=== PATIENT | male | born 1955 | race Caucasian/White ===

== ENCOUNTER 2019-05-19 14:33 | Emergency (ER) | payer MEDICARE ==
--- NOTE | 2019-05-19 15:07 | ERPHSYRPT ---
- History of Present Illness Time Seen by Provider: 05/19/19 14:55 Source: patient Exam Limitations: no limitations Physician History: 64 y/o white male presents from physical therapy clinic. pts bp elevated so pt was transferred to us for eval/management. pt is asymptomatic. 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 his bp on arrival 177/89. pt does have right shoulder pain(chronic post op ) after his surgery in mar 2019. he denies cp, soa and abd pain. pt takes lisinopril and carvedilol for htn Timing/Duration: today Severity: mild Associated Symptoms: denies symptoms, No nausea, No vomiting, No abdominal pain , No shortness of breath, No chest pain Allergies/Adverse Reactions: No Known Drug Allergies Allergy (Verified 05/19/19 15:39) Home Medications: Doxycycline Hyclate 100 mg [Vibramycin 100 MG] 100 mg PO DAILY 05/19/19 [ History] Tizanidine HCl 2 mg PO DAILY 05/19/19 [History] Triamcinolone Acetonide 0.1% [Kenalog 0.1% Ointment] 1 each TOP DAILY 05/19 [History] Hx Tetanus, Diphtheria Vaccination/Date Given: No Hx Influenza Vaccination/Date Given: No Hx Pneumococcal Vaccination/Date Given: No - Review of Systems Constitutional: No Symptoms Eyes: No Symptoms Ears, Nose, & Throat: No Symptoms Respiratory: No Symptoms Cardiac: No Symptoms Abdominal/Gastrointestinal: No Symptoms Genitourinary Symptoms: No Symptoms Musculoskeletal: Joint Pain (chronic right shoulder pain) Neurological: No Symptoms Psychological: No Symptoms Endocrine: No Symptoms Hematologic/Lymphatic: No Symptoms Immunological/Allergic: No Symptoms All Other Systems: Reviewed and Negative - Past Medical History Pertinent Past Medical History: Yes Neurological History: TIA ENT History: No Pertinent History Cardiac History: High Cholesterol, Hypertension Respiratory History: No Pertinent History Endocrine Medical History: Diabetes Type II Musculoskeletal History: Arthritis, Osteoarthritis GI Medical History: Diverticulitis, GERD, Other History: No Pertinent History Psycho-Social History: No Pertinent History, Depression Male Reproductive Disorders: No Pertinent History Other Medical History: Patient reports history as: partial colon removal, R knee surgery (ACL and MCL repair), PTSD, ADHD - Past Surgical History Past Surgical History: Yes Neuro Surgical History: No Pertinent History Cardiac: No Pertinent History Respiratory: No Pertinent History Gastrointestinal: Other Genitourinary: No Pertinent History Musculoskeletal: No Pertinent History Male Surgical History: No Pertinent History Other Surgical History: COLONOSCOPY-REMOVED A POLYP. RIGHT KNEE SURGERY- LIGAMENT RUPTURES. FINGER SURGERY - Social History Smoking Status: Never smoker Exposure to second hand smoke: No Drug Use: none Patient Lives Alone: No - Nursing Vital Signs Nursing Vital Signs: Initial Vital Signs Temperature 98 F 05/19/19 14:43 Pulse Rate 72 05/19/19 14:43 Respiratory Rate 20 05/19/19 14:43 Blood Pressure 177/89 05/19/19 14:43 O2 Sat by Pulse Oximetry 96 05/19/19 14:43 Pain Scale Pain Intensity 6 - Physical Exam General Appearance: no apparent distress, alert, anxiety Eye Exam: PERRL/EOMI, eyes nml inspection Ears, Nose, Throat Exam: normal ENT inspection, moist mucous membranes Neck Exam: normal inspection, non-tender, supple, full range of motion Respiratory Exam: normal breath sounds, lungs clear, airway intact, No chest tenderness, No respiratory distress Cardiovascular Exam: regular rate/rhythm, normal heart sounds, normal peripheral pulses Gastrointestinal/Abdomen Exam: soft, normal bowel sounds, No tenderness Rectal Exam: not done Back Exam: normal inspection, normal range of motion, No CVA tenderness, No vertebral tenderness Extremity Exam: normal inspection, normal range of motion, pelvis stable Neurologic Exam: alert, oriented x 3, cooperative, community support specialist II-XII nml as tested Skin Exam: normal color, warm, dry Lymphatic Exam: No adenopathy SpO2 Interpretation: normal O2 Delivery: Room Air - Course Nursing assessment & vital signs reviewed: Yes Ordered Tests: Active Orders 24 hr Category Date Time Status 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 2.5 Mg IV 05/19/19 15:08 0.625 mg STAT ONE Administration Enalaprilat Confirm 05/19/19 15:36 Vasotec I.V. 2.5 Mg Administered 05/19/19 15:37 Dose 2.5 mg IV .STK-MED ONE Lab/Rad Data: Laboratory Result Diagrams 05/19/19 15:30 05/19/19 15:30 Laboratory Results 05/19/19 05/19/19 Range/Units 15:30 15:30 WBC 8.7 (4.0-10.5) K/mm3 RBC 4.96 (4.1-5.6) M/mm3 Hgb 14.7 (12.5-18.0) gm/dl Hct 42.7 (42-50) % MCV 86.1 (78-100) fl MCH 29.6 (26-32) pg MCHC 34.4 (32-36) g/dl RDW 12.5 (11.5-14.0) % Plt Count 254 (150-450) K/mm3 MPV 10.4 H (6-9.5) fl Gran % 69.6 H (36.0-66.0) % Eos # (Auto) 0.20 (0-0.5) Absolute Lymphs (auto) 1.81 (1.0-4.6) Absolute Monos (auto) 0.61 (0.0-1.3) Lymphocytes % 20.9 L (24.0-44.0) % Monocytes % 7.0 (0.0-12.0) % Eosinophils % 2.3 (0.00-5.0) % Basophils % 0.2 (0.0-0.4) % Absolute Granulocytes 6.04 (1.4-6.9) Basophils # 0.02 (0-0.4) Sodium 142 (137-145) mmol/L Potassium 4.3 (3.5-5.1) mmol/L Chloride 101 (98-107) mmol/L Carbon Dioxide 28 (22-30) mmol/L Anion Gap 16.6 H (5-15) MEQ/L BUN 16 (9-20) mg/dL Creatinine 0.56 L (0.66-1.25) mg/dL Estimated GFR > 60.0 ML/MIN Glucose 99 (74-106) mg/dL Calcium 9.8 (8.4-10.2) mg/dL - Progress Progress: improved Counseled pt/family regarding: lab results, need for follow-up - Departure Departure Disposition: Home Clinical Impression: Hypertensive urgency Condition: Stable Critical Care Time: Yes Referrals: PERRY RUSHING MD [Primary Care Provider] - Additional Instructions: take your medications as prescribed. monitor and log your blood pressure 3 times daily for 3 days then follow up with your prescribing doctor for further management
[2019-05-19 15:35] LABS: Absolute Neutrophil Ct (ANC) 6.04 (1.4-6.9); BASOPHIL % 0.2 % (0.0-0.4); Basophil (Absolute #) 0.02 (0-0.4); Eosinophil % 2.3 % (0.00-5.0); Hematocrit 42.7 % (42-50); Hemoglobin 14.7 gm/dl (12.5-18.0); Lymphocyte (Absolute #) 1.81 (1.0-4.6); Lymphocytes % 20.9 % (24.0-44.0); Mean Cell Volume 86.1 fl (78-100); Mean Corpuscular Hemoglobin 29.6 pg (26-32); Mean Corpuscular Hgb Concent. 34.4 g/dl (32-36); Mean Platelet Volume 10.4 fl (6-9.5); Monocyte (Absolute #) 0.61 (0.0-1.3); Neutrophil % 69.6 % (36.0-66.0); Platelet Count 254 K/mm3 (150-450); Red Blood Count 4.96 M/mm3 (4.1-5.6); Red Cell Distribution Width 12.5 % (11.5-14.0); White Blood Count 8.7 K/mm3 (4.0-10.5)
[2019-05-19] MEDS ORDERED: VASOTEC I.V. 2.5 MG IV ONE (15:36)
[2019-05-19] MEDS: VASOTEC I.V. 2.5 MG IV ONE (15:42)
[2019-05-19 15:45] LABS: ANION GAP 16.6 MEQ/L (5-15); BLOOD UREA NITROGEN 16 mg/dL (9-20); CHLORIDE 101 mmol/L (98-107); Calcium 9.8 mg/dL (8.4-10.2); Carbon Dioxide 28 mmol/L (22-30); Creatinine 1 0.56 mg/dL (0.66-1.25); Glucose 99 mg/dL (74-106); Potassium 4.3 mmol/L (3.5-5.1); SODIUM 142 mmol/L (137-145)
[2019-05-19 16:23] VITALS: BP 156/91; PULSE 69; O2SAT 98
== END 2019-05-19 16:22 | disposition home or self-care (01) ==
LOC: ED 14:33
DX: I16.0 Hypertensive urgency (principal); I10 Essential (primary) hypertension; E11.9 Type 2 diabetes mellitus without complications; M19.90 Unspecified osteoarthritis, unspecified site; F41.9 Anxiety disorder, unspecified
CPT/HCPCS: 36000; 36415; 80048; 85025; 93041; 94760; 96374; 99284

== ENCOUNTER 2019-09-24 07:50 | Day surgery (SDC) | payer MEDICARE ==
[2019-09-24] MEDS ORDERED: Depo-Medrol 40 MG/ML IM ONE (07:51)
[2019-09-24] MEDS ORDERED: Xylocaine-Mpf 2% 5 Ml Vial IJ ONE (07:51)
--- NOTE | 2019-09-24 10:20 | XRAY ---
14 seconds fluoroscopy time in surgery for bilateral L3-S1 MBB.
--- NOTE | 2019-09-24 10:20 | XRAY ---
Indication: Bilateral L3-S1 MBB. Intraoperative fluoroscopy was provided for 14 seconds. Single digital spot image submitted for interpretation demonstrates posterior needle tips projecting over the expected course of the left and right L3-S1 nerve roots. Correlate with intraoperative findings/report.
[2019-09-24] MEDS ORDERED: Lactated Ringers 1,000 ML IV ONE (14:50)
== END 2019-09-24 09:27 | disposition home or self-care (01) ==
LOC: SDC-PAIN 07:50
PROVIDERS: ATTEND Psychiatry & Neurology Pain Medicine
DX: M47.816 Spondylosis without myelopathy or radiculopathy, lumbar region (principal); M47.817 Spondylosis without myelopathy or radiculopathy, lumbosacral region; E11.9 Type 2 diabetes mellitus without complications; F41.8 Other specified anxiety disorders; Z86.73 Personal history of transient ischemic attack (TIA), and cerebral infarction without residual deficits; Z79.899 Other long term (current) drug therapy
CPT/HCPCS: 64493; 64494; 64495; 72020; 77002; 82962; J1030

== ENCOUNTER 2019-12-24 07:38 | Day surgery (SDC) | payer MEDICARE ==
[2019-12-24] MEDS ORDERED: Marcaine 0.5% SDV 10 ML IJ ONE (07:39)
[2019-12-24] MEDS ORDERED: Depo-Medrol 40 MG/ML IM ONE (07:39)
[2019-12-24] MEDS ORDERED: Ketamine HCl 50 MG/ML ONE (10:09)
--- NOTE | 2019-12-24 11:52 | XRAY ---
Indication: Bilateral L3-S1 MBB. Intraoperative fluoroscopy was provided for 17 seconds. Single digital spot image submitted for interpretation demonstrates posterior needle tips projecting over the expected course the left and right L3-S1 nerve roots. Correlate with intraoperative findings/report.
--- NOTE | 2019-12-24 11:57 | XRAY ---
17 seconds fluoroscopy time in surgery for bilateral L3-S1 MBB.
[2019-12-24] MEDS ORDERED: Lactated Ringers 1,000 ML IV ONE (14:31)
== END 2019-12-24 10:36 | disposition home or self-care (01) ==
LOC: SDC-PAIN 07:38
PROVIDERS: ATTEND Psychiatry & Neurology Pain Medicine
DX: M47.816 Spondylosis without myelopathy or radiculopathy, lumbar region (principal); E11.9 Type 2 diabetes mellitus without complications; Z86.79 Personal history of other diseases of the circulatory system; Z86.73 Personal history of transient ischemic attack (TIA), and cerebral infarction without residual deficits; Z79.899 Other long term (current) drug therapy
CPT/HCPCS: 64493; 64494; 64495; 72020; 77002; 82962; J1030

== ENCOUNTER 2020-01-28 09:01 | Day surgery (SDC) | payer MEDICARE ==
[2020-01-28] MEDS ORDERED: Depo-Medrol 40 MG/ML IM ONE (09:02)
[2020-01-28] MEDS ORDERED: Xylocaine 1% Vial 30 ML PF IJ ONE (09:02)
[2020-01-28] MEDS ORDERED: Marcaine 0.5% SDV 10 ML IM ONE (09:02)
[2020-01-28] MEDS ORDERED: Ketamine HCl 50 MG/ML ONE (10:29)
[2020-01-28] MEDS ORDERED: DIPRIVAN 200 MG/20 ML IV ONE (10:29)
--- NOTE | 2020-01-28 12:21 | XRAY ---
Indication: Left L3-S1 RFA. Intraoperative fluoroscopy was provided for 40 seconds. 3 digital spot images demonstrates posterior needle tips projecting over the expected course of the left L3-S1 nerve roots. Correlate with intraoperative findings/report.
--- NOTE | 2020-01-28 14:26 | XRAY ---
40 seconds of fluoroscopy was used in surgery for a left L3-L4, L4-L5, and L5-S1 RFA.
[2020-01-28] MEDS ORDERED: Lactated Ringers 1,000 ML IV ONE (14:52)
== END 2020-01-28 11:07 | disposition home or self-care (01) ==
LOC: SDC-PAIN 09:01
PROVIDERS: ATTEND Psychiatry & Neurology Pain Medicine
DX: M47.816 Spondylosis without myelopathy or radiculopathy, lumbar region (principal); E11.9 Type 2 diabetes mellitus without complications; I25.10 Atherosclerotic heart disease of native coronary artery without angina pectoris; Z86.73 Personal history of transient ischemic attack (TIA), and cerebral infarction without residual deficits; Z79.899 Other long term (current) drug therapy
CPT/HCPCS: 64633; 64635; 64636; 72100; 77002; 82962; J1030; J2001; J2704

== ENCOUNTER 2020-02-04 11:30 | Day surgery (SDC) | payer MEDICARE ==
[2020-02-04] MEDS ORDERED: Xylocaine 1% Vial 30 ML PF IJ ONE (11:31)
[2020-02-04] MEDS ORDERED: Depo-Medrol 40 MG/ML IM ONE (11:31)
[2020-02-04] MEDS ORDERED: Marcaine 0.5% SDV 10 ML IM ONE (11:31)
[2020-02-04] MEDS ORDERED: Ketamine HCl 50 MG/ML ONE (12:42)
[2020-02-04] MEDS ORDERED: DIPRIVAN 200 MG/20 ML IV ONE (12:42)
--- NOTE | 2020-02-04 14:10 | XRAY ---
30 seconds fluoroscopy time in surgery for right L3-S1 RFA.
--- NOTE | 2020-02-04 14:19 | XRAY ---
Indication: Right L3-S1 RFA. Intraoperative fluoroscopy was provided for 30 seconds. 3 digital spot images submitted for interpretation demonstrates posterior needle tips projecting over the expected course of the right L3-S1 nerve roots. Correlate with intraoperative findings/report.
[2020-02-04] MEDS ORDERED: Lactated Ringers 1,000 ML IV ONE (14:54)
== END 2020-02-04 13:20 | disposition home or self-care (01) ==
LOC: SDC-PAIN 11:30
PROVIDERS: ATTEND Psychiatry & Neurology Pain Medicine
DX: M47.816 Spondylosis without myelopathy or radiculopathy, lumbar region (principal); E11.9 Type 2 diabetes mellitus without complications; I25.10 Atherosclerotic heart disease of native coronary artery without angina pectoris; Z86.73 Personal history of transient ischemic attack (TIA), and cerebral infarction without residual deficits; Z79.899 Other long term (current) drug therapy
CPT/HCPCS: 64635; 64636; 72100; 77002; 82962; J1030; J2001; J2704

== ENCOUNTER 2020-03-03 09:12 | Day surgery (SDC) | payer MEDICARE ==
[2020-03-03] MEDS ORDERED: Sodium Chloride 0.9(Preservative Free) 10 ML IJ ONE (09:13)
[2020-03-03] MEDS ORDERED: Xylocaine 1% Vial 30 ML PF IJ ONE (09:13)
[2020-03-03] MEDS ORDERED: Depo-Medrol 40 MG/ML IM ONE (09:13)
[2020-03-03] MEDS ORDERED: Ketamine HCl 50 MG/ML ONE (10:30)
[2020-03-03] MEDS ORDERED: DIPRIVAN 200 MG/20 ML IV ONE (10:30)
[2020-03-03] MEDS ORDERED: Lactated Ringers 1,000 ML IV ONE (13:51)
--- NOTE | 2020-03-06 17:52 | XRAY ---
Indication: Lumbar EMI. Intraoperative fluoroscopy was provided for 18 seconds. PA and lateral digital spot images submitted for interpretation demonstrate a posterior needle tip in the midline at the posterior margin of the L5-S1 spinal sac. Correlate with intraoperative findings/report.
--- NOTE | 2020-03-08 07:45 | XRAY ---
18 seconds fluoroscopy time in surgery for lumbar EMI.
== END 2020-03-03 10:57 | disposition home or self-care (01) ==
LOC: SDC-PAIN 09:12
PROVIDERS: ATTEND Psychiatry & Neurology Pain Medicine
DX: M54.16 Radiculopathy, lumbar region (principal); E11.9 Type 2 diabetes mellitus without complications; Z86.73 Personal history of transient ischemic attack (TIA), and cerebral infarction without residual deficits; Z86.79 Personal history of other diseases of the circulatory system; F41.8 Other specified anxiety disorders; Z79.899 Other long term (current) drug therapy
CPT/HCPCS: 62323; 72100; 77003; 82962; J1030; J2001; J2704; Q9966

== ENCOUNTER 2020-04-21 08:40 | Day surgery (SDC) | payer MEDICARE ==
[~2020-04-21 08:40] MED LIST: DIPRIVAN 200 MG/20 ML IV ONE; Ketamine HCl 50 MG/ML ONE
[2020-04-21] MEDS ORDERED: BUPIVACAINE 0.5% VIAL IJ ONE (08:41)
[2020-04-21] MEDS ORDERED: Depo-Medrol 40 MG/ML IM ONE (08:41)
--- NOTE | 2020-04-21 11:47 | XRAY ---
Indication: Left knee injection. Intraoperative fluoroscopy was provided for 7 seconds. Single digital spot image of the left knee submitted for interpretation demonstrates needle tip projecting over the intercondylar notch. Small amount of contrast injected for needle tip placement. Correlate with intraoperative findings/report.
--- NOTE | 2020-04-21 11:47 | XRAY ---
Indication: Right knee injection. Intraoperative fluoroscopy was provided for 6 seconds. Single digital spot image of the right knee submitted for interpretation demonstrates needle tip projecting over the intercondylar notch. Small amount of contrast injected for needle tip placement. Correlate with intraoperative findings/report. Incidental ACL reconstructive surgery.
--- NOTE | 2020-04-21 11:51 | XRAY ---
7 seconds fluoroscopy time in surgery for left intra-articular knee injection.
--- NOTE | 2020-04-21 12:01 | XRAY ---
6 seconds fluoroscopy time in surgery for right intra-articular knee injection.
[2020-04-21] MEDS ORDERED: Lactated Ringers 1,000 ML IV ONE (15:09)
== END 2020-04-21 10:30 | disposition home or self-care (01) ==
LOC: SDC-PAIN 08:40 → EDSTATUS 22:12
PROVIDERS: ATTEND Psychiatry & Neurology Pain Medicine
DX: M17.0 Bilateral primary osteoarthritis of knee (principal); M25.561 Pain in right knee; M25.562 Pain in left knee; E11.9 Type 2 diabetes mellitus without complications; Z86.73 Personal history of transient ischemic attack (TIA), and cerebral infarction without residual deficits; Z86.79 Personal history of other diseases of the circulatory system; Z79.899 Other long term (current) drug therapy
CPT/HCPCS: 20610; 36415; 73560; 77002; 82962; J1030; J2704; Q9966

== ENCOUNTER 2020-06-16 08:00 | Day surgery (SDC) | payer MEDICARE ==
[2020-06-16] MEDS ORDERED: Sodium Chloride 0.9(Preservative Free) 10 ML IJ ONE (08:01)
[2020-06-16] MEDS ORDERED: Depo-Medrol 40 MG/ML IM ONE (08:01)
[2020-06-16] MEDS ORDERED: DIPRIVAN 200 MG/20 ML IV ONE (09:58)
[2020-06-16] MEDS ORDERED: Ketamine HCl 50 MG/ML ONE (09:58)
[2020-06-16] MEDS ORDERED: TORAdol 30 mg Injection ONE (10:17)
[2020-06-16] MEDS ORDERED: MORPHINE SULFATE 10 MG/ML ONE (10:17)
--- NOTE | 2020-06-16 10:50 | XRAY ---
Indication: Left L4-S1 transforaminal EMI. Intraoperative fluoroscopy was provided for 46 seconds. 4 digital spot images submitted for interpretation demonstrates posterior needle tips projecting over the expected left L4 and L5 nerve roots. Small amount of contrast injected for needle tip placement. Correlate with intraoperative findings/report.
--- NOTE | 2020-06-16 10:54 | XRAY ---
46 seconds fluoroscopy time in surgery for left L4-S1 transforaminal EMI.
[2020-06-16] MEDS ORDERED: Lactated Ringers 1,000 ML IV ONE (16:45)
== END 2020-06-16 10:27 | disposition home or self-care (01) ==
LOC: SDC-PAIN 08:00
PROVIDERS: ATTEND Psychiatry & Neurology Pain Medicine
DX: M54.16 Radiculopathy, lumbar region (principal); E11.9 Type 2 diabetes mellitus without complications; I25.10 Atherosclerotic heart disease of native coronary artery without angina pectoris; Z79.899 Other long term (current) drug therapy; Z86.73 Personal history of transient ischemic attack (TIA), and cerebral infarction without residual deficits
CPT/HCPCS: 64493; 64494; 72100; 77003; 82947; 82962; J1030; J1885; J2270; J2704; Q9966

== ENCOUNTER 2020-10-13 09:04 | Day surgery (SDC) | payer MEDICARE ==
[2020-10-13] MEDS ORDERED: Sodium Chloride 0.9(Preservative Free) 10 ML IJ ONE (09:05)
[2020-10-13] MEDS ORDERED: Depo-Medrol 40 MG/ML IM ONE (09:05)
[2020-10-13] MEDS ORDERED: DIPRIVAN 200 MG/20 ML IV ONE (10:40)
[2020-10-13] MEDS ORDERED: Ketamine HCl 50 MG/ML ONE (10:41)
[2020-10-13] MEDS ORDERED: MORPHINE SULFATE 10 MG/ML ONE (11:06)
--- NOTE | 2020-10-13 12:01 | XRAY ---
44 seconds fluoroscopy time in surgery for left L4-S1 transforaminal EMI.
--- NOTE | 2020-10-13 12:01 | XRAY ---
Indication: Left L4-S1 transforaminal EMI. Intraoperative fluoroscopy provided for 44 seconds. 5 digital spot images submitted for interpretation demonstrates posterior needle tips projecting over the expected left L4 and L5 nerve roots. Small amount of contrast injected for needle tip placement. Correlate with intraoperative findings/report.
[2020-10-13] MEDS ORDERED: Lactated Ringers 1,000 ML IV ONE (14:59)
== END 2020-10-13 11:10 | disposition home or self-care (01) ==
LOC: SDC-PAIN 09:04
PROVIDERS: ATTEND Psychiatry & Neurology Pain Medicine
DX: M54.16 Radiculopathy, lumbar region (principal); E11.9 Type 2 diabetes mellitus without complications; Z86.73 Personal history of transient ischemic attack (TIA), and cerebral infarction without residual deficits; I25.10 Atherosclerotic heart disease of native coronary artery without angina pectoris; Z85.828 Personal history of other malignant neoplasm of skin; Z79.899 Other long term (current) drug therapy
CPT/HCPCS: 64635; 64636; 72100; 77003; 82947; J1030; J2270; J2704; Q9966

== ENCOUNTER 2021-01-05 09:03 | Day surgery (SDC) | payer MEDICARE ==
[2021-01-05] MEDS ORDERED: Xylocaine 1% Vial 30 ML PF IJ ONE (09:04)
[2021-01-05] MEDS ORDERED: Depo-Medrol 40 MG/ML IM ONE (09:04)
[2021-01-05] MEDS ORDERED: Sodium Chloride 0.9(Preservative Free) 10 ML IJ ONE (09:04)
[2021-01-05] MEDS ORDERED: DIPRIVAN 200 MG/20 ML IV ONE (09:32)
[2021-01-05] MEDS ORDERED: MORPHINE SULFATE 10 MG/ML ONE (10:43)
--- NOTE | 2021-01-05 10:50 | XRAY ---
Indication: Caudal EMI. Intraoperative fluoroscopy provided for 14 seconds. 3 digital spot images submitted for interpretation demonstrates posterior caudal needle tip projecting just posterior to the mid sacrum. Small amount of contrast injected for needle tip placement. Correlate with intraoperative findings/report.
--- NOTE | 2021-01-05 11:00 | XRAY ---
14 seconds of fluoroscopy was used in surgery for a caudal EMI.
[2021-01-05] MEDS ORDERED: Lactated Ringers 1,000 ML IV ONE (16:18)
== END 2021-01-05 10:52 | disposition home or self-care (01) ==
LOC: SDC-PAIN 09:03
PROVIDERS: ATTEND Psychiatry & Neurology Pain Medicine
DX: M54.16 Radiculopathy, lumbar region (principal); I50.9 Heart failure, unspecified; I25.10 Atherosclerotic heart disease of native coronary artery without angina pectoris; M19.90 Unspecified osteoarthritis, unspecified site; E11.9 Type 2 diabetes mellitus without complications; Z79.899 Other long term (current) drug therapy
CPT/HCPCS: 62323; 72020; 77003; 82947; J1030; J2001; J2270; J2704; Q9966

== ENCOUNTER 2021-03-16 09:03 | Day surgery (SDC) | payer MEDICARE ==
[2021-03-16] MEDS ORDERED: Xylocaine 1% Vial 30 ML PF IJ ONE (09:04)
[2021-03-16] MEDS ORDERED: Depo-Medrol 40 MG/ML IM ONE (09:04)
[2021-03-16] MEDS ORDERED: Sodium Chloride 0.9(Preservative Free) 10 ML IJ ONE (09:04)
[2021-03-16] MEDS ORDERED: DIPRIVAN 200 MG/20 ML IV ONE (10:18)
[2021-03-16] MEDS ORDERED: Lactated Ringers 1,000 ML IV ONE (15:53)
--- NOTE | 2021-03-17 12:03 | XRAY ---
18 seconds fluoroscopy time in surgery for lumbar caudal EMI.
--- NOTE | 2021-03-19 23:50 | XRAY ---
Indication: Caudal EMI. Intraoperative fluoroscopy was provided for 18 seconds. A single digital spot image submitted for interpretation demonstrates a single posterior needle tip projected over the mid aspect of the sacrum. A small amount of contrast has been injected for needle tip placement. Correlate with intraoperative findings/report.
== END 2021-03-16 11:10 | disposition home or self-care (01) ==
LOC: SDC-PAIN 09:03
PROVIDERS: ATTEND Psychiatry & Neurology Pain Medicine
DX: M54.16 Radiculopathy, lumbar region (principal); M47.896 Other spondylosis, lumbar region; E11.9 Type 2 diabetes mellitus without complications; Z79.899 Other long term (current) drug therapy
CPT/HCPCS: 62323; 72020; 77003; 82947; J1030; J2001; J2704; Q9966

== ENCOUNTER 2021-05-18 08:53 | Day surgery (SDC) | payer MEDICARE ==
[2021-05-18] MEDS ORDERED: Decadron 4 MG INJ IV ONE (08:54)
[2021-05-18] MEDS ORDERED: Xylocaine 1% Vial 30 ML PF IJ ONE (08:54)
[2021-05-18] MEDS ORDERED: DIPRIVAN 200 MG/20 ML IV ONE (10:19)
[2021-05-18] MEDS ORDERED: MORPHINE SULFATE 2 MG INJ ONE (10:35)
--- NOTE | 2021-05-18 11:46 | XRAY ---
Indication: Left piriformis muscle injection. Intraoperative fluoroscopy provided for 14 seconds. Single digital spot images submitted for interpretation demonstrates posterior needle tip projecting over the expected left piriformis muscle. Small amount of contrast injected for needle tip placement. Correlate with intraoperative findings/report.
--- NOTE | 2021-05-18 11:56 | XRAY ---
14 seconds fluoroscopy time in surgery for injection of the left piriformis muscle.
[2021-05-18] MEDS ORDERED: Lactated Ringers 1,000 ML IV ONE (15:20)
== END 2021-05-18 10:44 | disposition home or self-care (01) ==
LOC: SDC-PAIN 08:53
PROVIDERS: ATTEND Psychiatry & Neurology Pain Medicine
DX: M79.18 Myalgia, other site (principal); E11.9 Type 2 diabetes mellitus without complications; Z79.899 Other long term (current) drug therapy
CPT/HCPCS: 20552; 72020; 77002; 82947; J1100; J2001; J2270; J2704; Q9966

== ENCOUNTER 2021-08-10 09:23 | Day surgery (SDC) | payer MEDICARE ==
[2021-08-10] MEDS ORDERED: Xylocaine 1% Vial 30 ML PF IJ ONE (09:24)
[2021-08-10] MEDS ORDERED: Depo-Medrol 40 MG/ML IM ONE (09:24)
[2021-08-10] MEDS ORDERED: Lactated Ringers 1,000 ML IV ONE (11:19)
[2021-08-10] MEDS ORDERED: DIPRIVAN 200 MG/20 ML IV ONE (11:28)
[2021-08-10] MEDS ORDERED: MORPHINE SULFATE 2 MG INJ ONE (11:38)
--- NOTE | 2021-08-10 12:28 | XRAY ---
Indication: Left piriformis injection. Intraoperative fluoroscopy provided for 14 seconds. Single digital spot image obtained prone submitted for interpretation demonstrates posterior needle tip projecting over the expected left piriformis muscle. Small amount of contrast injected for needle tip placement. Correlate with intraoperative findings/report.
--- NOTE | 2021-08-10 12:36 | XRAY ---
14 seconds fluoroscopy time in surgery for injection of the left piriformis muscle.
== END 2021-08-10 11:50 | disposition home or self-care (01) ==
LOC: SDC-PAIN 09:23
PROVIDERS: ATTEND Psychiatry & Neurology Pain Medicine
DX: M79.18 Myalgia, other site (principal); E11.9 Type 2 diabetes mellitus without complications; Z79.899 Other long term (current) drug therapy
CPT/HCPCS: 20552; 72020; 77002; 82947; J1030; J2001; J2270; J2704; Q9966

== ENCOUNTER 2021-12-21 08:37 | Day surgery (SDC) | payer MEDICARE ==
[2021-12-21] MEDS ORDERED: BUPIVACAINE 0.5% VIAL IJ ONE (08:38)
[2021-12-21] MEDS ORDERED: Depo-Medrol 40 MG/ML IM ONE (08:38)
[2021-12-21] MEDS ORDERED: Lactated Ringers 1,000 ML IV ONE (10:06)
[2021-12-21] MEDS ORDERED: DIPRIVAN 200 MG/20 ML IV ONE (10:34)
[2021-12-21] MEDS ORDERED: MORPHINE SULFATE 2 MG INJ ONE (10:50)
--- NOTE | 2021-12-21 11:59 | XRAY ---
Indication: Left SI joint injection. Intraoperative fluoroscopy provided for 18 seconds. 2 digital spot images submitted for interpretation demonstrates posterior needle tip projecting over the inferior left SI joint. Correlate with intraoperative findings/report.
--- NOTE | 2021-12-21 12:48 | XRAY ---
18 seconds fluoroscopy time in surgery for injection of the left SI joint.
== END 2021-12-21 11:01 | disposition home or self-care (01) ==
LOC: SDC-PAIN 08:37
PROVIDERS: ATTEND Psychiatry & Neurology Pain Medicine
DX: M46.1 Sacroiliitis, not elsewhere classified (principal); E11.9 Type 2 diabetes mellitus without complications; Z79.899 Other long term (current) drug therapy
CPT/HCPCS: 64451; 72020; 77002; 82947; J1030; J2270; J2704

== ENCOUNTER 2022-01-11 08:32 | Day surgery (SDC) | payer MEDICARE ==
[2022-01-11] MEDS ORDERED: Xylocaine 1% Vial 30 ML PF IJ ONE (08:33)
[2022-01-11] MEDS ORDERED: Decadron 4 MG INJ IV ONE (08:33)
[2022-01-11] MEDS ORDERED: DIPRIVAN 200 MG/20 ML IV ONE (09:29)
[2022-01-11] MEDS ORDERED: Lactated Ringers 1,000 ML IV ONE (09:40)
--- NOTE | 2022-01-11 10:32 | XRAY ---
42 seconds fluoroscopy time in surgery for injection of the left piriformis muscle.
--- NOTE | 2022-01-11 10:32 | XRAY ---
Indication: Left piriformis injection. Intraoperative fluoroscopy provided for 42 seconds. Single digital spot image submitted for interpretation demonstrates posterior needle tip projecting over the expected left piriformis muscle. Small amount of contrast injected for needle tip placement. Correlate with intraoperative findings/report.
== END 2022-01-11 10:08 | disposition home or self-care (01) ==
LOC: SDC-PAIN 08:32
PROVIDERS: ATTEND Psychiatry & Neurology Pain Medicine
DX: M79.18 Myalgia, other site (principal); E11.9 Type 2 diabetes mellitus without complications; Z79.899 Other long term (current) drug therapy
CPT/HCPCS: 20552; 72170; 77002; 82947; J1100; J2001; J2704; Q9966

== ENCOUNTER 2022-02-08 09:36 | Day surgery (SDC) | payer MEDICARE ==
[2022-02-08] MEDS ORDERED: Decadron 4 MG INJ IV ONE (09:37)
[2022-02-08] MEDS ORDERED: XYLOCAINE-MPF 1% 5ML SDV IJ ONE (09:37)
[2022-02-08] MEDS ORDERED: DIPRIVAN 200 MG/20 ML IV ONE (11:14)
[2022-02-08] MEDS ORDERED: Lactated Ringers 1,000 ML IV ONE (11:34)
--- NOTE | 2022-02-09 18:30 | XRAY ---
29 seconds fluoroscopy time in surgery for bilateral injections of the piriformis muscles.
--- NOTE | 2022-02-10 16:03 | XRAY ---
Indication: Bilateral Piriformis. Intraoperative fluoroscopy provided for 29 seconds. 2 digital spot images submitted for interpretation demonstrates posterior needle tip projecting over the expected right and left piriformis muscle. Small amount of contrast injected for needle tip placement. Correlate with intraoperative findings/report.
== END 2022-02-08 11:46 | disposition home or self-care (01) ==
LOC: SDC-PAIN 09:36
PROVIDERS: ATTEND Psychiatry & Neurology Pain Medicine
DX: M79.18 Myalgia, other site (principal); E11.9 Type 2 diabetes mellitus without complications; Z79.899 Other long term (current) drug therapy
CPT/HCPCS: 20552; 72170; 77002; 82947; J1100; J2704; Q9966

== ENCOUNTER 2022-05-24 08:37 | Day surgery (SDC) | payer MEDICARE ==
[2022-05-24] MEDS ORDERED: Decadron 4 MG INJ IV ONE (08:38)
[2022-05-24] MEDS ORDERED: Sodium Chloride 0.9(Preservative Free) 10 ML IJ ONE (08:38)
[2022-05-24] MEDS ORDERED: Depo-Medrol 40 MG/ML IM ONE (08:38)
[2022-05-24] MEDS ORDERED: LIDOCAINE HCL 1% 50 MG/5 ML VL PF IJ ONE (08:38)
[2022-05-24] MEDS ORDERED: DIPRIVAN 200 MG/20 ML IV ONE (09:44)
[2022-05-24] MEDS ORDERED: MORPHINE SULFATE 2 MG INJ ONE (10:01)
[2022-05-24] MEDS ORDERED: Lactated Ringers 1,000 ML IV ONE (11:26)
--- NOTE | 2022-05-24 12:13 | XRAY ---
Indication: Left L4-S1 transforaminal EMI. Intraoperative fluoroscopy provided for 37 seconds. 4 digital spot image submitted for interpretation demonstrates posterior needle tips projecting over the expected left L4 and L5 nerve roots. Small amount of contrast injected for needle tip placement. Correlate with intraoperative findings/report.
--- NOTE | 2022-05-24 12:17 | XRAY ---
Indication: Left piriformis injection. Intraoperative fluoroscopy provided for 9 seconds. Single digital spot image submitted for interpretation demonstrates posterior needle tip projecting over the expected left piriformis muscle. Small amount of contrast injected for needle tip placement. Correlate with intraoperative findings/report.
--- NOTE | 2022-05-24 12:25 | XRAY ---
9 seconds of fluoroscopy was used in surgery for a left piriformis injection.
--- NOTE | 2022-05-24 12:26 | XRAY ---
37 seconds of fluoroscopy was used in surgery for a left L4-S1 transforaminal EMI.
== END 2022-05-24 10:20 | disposition home or self-care (01) ==
LOC: SDC-PAIN 08:37
PROVIDERS: ATTEND Psychiatry & Neurology Pain Medicine
DX: M54.16 Radiculopathy, lumbar region (principal); M79.18 Myalgia, other site; E11.9 Type 2 diabetes mellitus without complications; Z79.899 Other long term (current) drug therapy
CPT/HCPCS: 20552; 64483; 64484; 72100; 72170; 77002; 77003; 82947; J1030; J1100; J2001; J2270; J2704; Q9966

== ENCOUNTER 2022-10-11 08:43 | Day surgery (SDC) | payer MEDICARE ==
[2022-10-11] MEDS ORDERED: Depo-Medrol 40 MG/ML IM ONE (08:44)
[2022-10-11] MEDS ORDERED: BUPIVACAINE 0.5% VIAL IJ ONE (08:44)
[2022-10-11] MEDS ORDERED: DIPRIVAN 200 MG/20 ML IV ONE (10:42)
--- NOTE | 2022-10-11 12:15 | XRAY ---
Indication: Left SI joint injection. Intraoperative fluoroscopy provided for 15 seconds. 2 digital spot image submitted for interpretation demonstrates posterior needle tip projecting over the left SI joint. Correlate with intraoperative findings/report.
--- NOTE | 2022-10-11 12:37 | XRAY ---
15 seconds of fluoroscopy was used in surgery for a left sacroiliac joint injection.
[2022-10-11] MEDS ORDERED: Lactated Ringers 1,000 ML IV ONE (14:16)
== END 2022-10-11 11:10 | disposition home or self-care (01) ==
LOC: SDC-PAIN 08:43
PROVIDERS: ATTEND Psychiatry & Neurology Pain Medicine
DX: M46.1 Sacroiliitis, not elsewhere classified (principal); E11.9 Type 2 diabetes mellitus without complications; Z79.899 Other long term (current) drug therapy
CPT/HCPCS: 01992; 27096; 72170; 77002; 82947; G0260; J1030; J2704; Q9966

== ENCOUNTER 2022-11-08 09:23 | Day surgery (SDC) | payer MEDICARE ==
[2022-11-08] MEDS ORDERED: LIDOCAINE HCL 1% 50 MG/5 ML VL PF IJ ONE (09:24)
[2022-11-08] MEDS ORDERED: Depo-Medrol 40 MG/ML IM ONE (09:24)
[2022-11-08] MEDS ORDERED: BUPIVACAINE 0.5% VIAL IJ ONE (09:24)
[2022-11-08] MEDS ORDERED: DIPRIVAN 200 MG/20 ML IV ONE ×2 (11:11→11:24)
[2022-11-08] MEDS ORDERED: Xylocaine-Mpf 2% 5 Ml Vial ONE (11:11)
--- NOTE | 2022-11-08 12:20 | XRAY ---
Indication: Left L4-S1 RFA. Intraoperative fluoroscopy provided for 24 seconds. 5 digital spot image submitted for interpretation demonstrates posterior needle tips projecting over the expected left L4-S1 nerve roots. Correlate with intraoperative findings/report.
--- NOTE | 2022-11-08 12:44 | XRAY ---
24 seconds of fluoroscopy was used in surgery for a left L4-S1 RFA.
[2022-11-08] MEDS ORDERED: Lactated Ringers 1,000 ML IV ONE (13:17)
== END 2022-11-08 11:50 | disposition home or self-care (01) ==
LOC: SDC-PAIN 09:23
PROVIDERS: ATTEND Psychiatry & Neurology Pain Medicine
DX: M47.817 Spondylosis without myelopathy or radiculopathy, lumbosacral region (principal); E11.9 Type 2 diabetes mellitus without complications; Z79.899 Other long term (current) drug therapy
CPT/HCPCS: 64635; 64636; 72100; 77002; 82947; J1030; J2001; J2704

== ENCOUNTER 2022-11-15 09:20 | Day surgery (SDC) | payer MEDICARE ==
[2022-11-15] MEDS ORDERED: LIDOCAINE HCL 1% 50 MG/5 ML VL PF IJ ONE (09:21)
[2022-11-15] MEDS ORDERED: BUPIVACAINE 0.5% VIAL IJ ONE (09:21)
[2022-11-15] MEDS ORDERED: Depo-Medrol 40 MG/ML IM ONE (09:21)
[2022-11-15] MEDS ORDERED: Xylocaine-Mpf 2% 5 Ml Vial ONE (11:24)
[2022-11-15] MEDS ORDERED: DIPRIVAN 200 MG/20 ML IV ONE ×2 (11:24→11:35)
--- NOTE | 2022-11-15 13:02 | XRAY ---
Indication: Right L4-S1 RFA. Intraoperative fluoroscopy provided for 23 seconds. 5 digital spot image submitted for interpretation demonstrates posterior needle tips projecting over the expected right L4-S1 nerve roots. Correlate with intraoperative findings/report.
--- NOTE | 2022-11-15 13:04 | XRAY ---
23 seconds of fluoroscopy was used in surgery for a right L4-S1 RFA.
[2022-11-15] MEDS ORDERED: Lactated Ringers 1,000 ML IV ONE (15:03)
== END 2022-11-15 12:00 | disposition home or self-care (01) ==
LOC: SDC-PAIN 09:20
PROVIDERS: ATTEND Psychiatry & Neurology Pain Medicine
DX: M47.816 Spondylosis without myelopathy or radiculopathy, lumbar region (principal); E11.9 Type 2 diabetes mellitus without complications; Z79.899 Other long term (current) drug therapy
CPT/HCPCS: 64635; 64636; 72100; 77002; 82947; J1030; J2001; J2704

== ENCOUNTER 2023-06-20 09:15 | Day surgery (SDC) | payer MEDICARE ==
[2023-06-20] MEDS ORDERED: Depo-Medrol 40 MG/ML IM ONE (09:16)
[2023-06-20] MEDS ORDERED: BUPIVACAINE 0.5% VIAL IJ ONE (09:16)
[2023-06-20] MEDS ORDERED: DIPRIVAN 200 MG/20 ML IV ONE ×2 (11:20→11:32)
[2023-06-20] MEDS ORDERED: Lactated Ringers 1,000 ML IV ONE (12:10)
--- NOTE | 2023-06-20 12:26 | XRAY ---
Indication: Bilateral SI joint injection. Intraoperative fluoroscopy provided for 25 seconds. 4 digital spot images submitted for interpretation demonstrates posterior needle tip projecting over left and right SI joint. Correlate with intraoperative findings/report.
--- NOTE | 2023-06-20 12:28 | XRAY ---
25 seconds of fluoroscopy was used in surgery for a bilateral sacroiliac joint injection.
== END 2023-06-20 11:48 | disposition home or self-care (01) ==
LOC: SDC-PAIN 09:15
PROVIDERS: ATTEND Psychiatry & Neurology Pain Medicine
DX: M46.1 Sacroiliitis, not elsewhere classified (principal); E11.9 Type 2 diabetes mellitus without complications; Z79.899 Other long term (current) drug therapy
CPT/HCPCS: 01992; 27096; 72202; 77002; 82947; G0260; J1030; J2704

== ENCOUNTER 2023-09-20 09:06 | Day surgery (SDC) | payer MEDICARE ==
[2023-09-20] MEDS ORDERED: Decadron 4 MG INJ IV ONE (09:07)
[2023-09-20] MEDS ORDERED: Depo-Medrol 40 MG/ML IM ONE (09:07)
[2023-09-20] MEDS ORDERED: XYLOCAINE-MPF 1% 5ML SDV IJ ONE (09:07)
[2023-09-20] MEDS ORDERED: BUPIVACAINE 0.5% VIAL IJ ONE (09:07)
[2023-09-20] MEDS ORDERED: DIPRIVAN 200 MG/20 ML IV ONE (10:45)
--- NOTE | 2023-09-20 11:45 | XRAY ---
Indication: Left SI joint and piriformis injection. Intraoperative fluoroscopy provided for 36 seconds. 3 digital spot image submitted for interpretation demonstrates posterior needle tip projecting over the left SI joint. Second needle tip over left piriformis. Small amount of contrast injected for both needle tip placement. Correlate with intraoperative findings/report.
[2023-09-20] MEDS ORDERED: Lactated Ringers 1,000 ML IV ONE (12:04)
--- NOTE | 2023-09-20 13:23 | XRAY ---
36 seconds of fluoroscopy was used in surgery for a left sacroiliac joint and left piriformis injection.
== END 2023-09-20 11:10 | disposition home or self-care (01) ==
LOC: SDC-PAIN 09:06
PROVIDERS: ATTEND Psychiatry & Neurology Pain Medicine
DX: M79.18 Myalgia, other site (principal); M46.1 Sacroiliitis, not elsewhere classified; E11.9 Type 2 diabetes mellitus without complications
CPT/HCPCS: 01992; 20552; 27096; 72170; 77002; 82947; G0260; J1030; J1100; J2704; Q9966

== ENCOUNTER 2023-10-10 11:06 | Day surgery (SDC) | payer MEDICARE ==
[2023-10-10] MEDS ORDERED: XYLOCAINE-MPF 1% 5ML SDV IJ ONE (11:07)
[2023-10-10] MEDS ORDERED: Sodium Chloride 0.9(Preservative Free) 10 ML IJ ONE (11:07)
[2023-10-10] MEDS ORDERED: Decadron 4 MG INJ IV ONE (11:07)
[2023-10-10] MEDS ORDERED: Lactated Ringers 1,000 ML IV ONE (12:18)
[2023-10-10] MEDS ORDERED: DIPRIVAN 200 MG/20 ML IV ONE (12:50)
[2023-10-10] MEDS ORDERED: Hydromorphone 1 mg/ml Injection ONE (13:23)
--- NOTE | 2023-10-10 14:06 | XRAY ---
Indication: Left L3-L5 transforaminal EMI. Intraoperative fluoroscopy provided for 41 seconds. 9 digital spot image submitted for interpretation demonstrates posterior needle tips projecting over the expected left L3 and L4 nerve roots. Small amount of contrast injected for needle tip placement. Correlate with intraoperative findings/report.
--- NOTE | 2023-10-10 14:08 | XRAY ---
Indication: Left piriformis injection. Intraoperative fluoroscopy provided for 7 seconds. Single digital spot image submitted for interpretation demonstrates posterior needle tip projecting left piriformis. Small amount of contrast injected for needle tip placement. Correlate with intraoperative findings/report.
--- NOTE | 2023-10-10 15:13 | XRAY ---
7 seconds of fluoroscopy was used in surgery for a left piriformis injection.
--- NOTE | 2023-10-10 15:13 | XRAY ---
41 seconds of fluoroscopy was used in surgery for a left L3-L5 transforaminal EMI.
== END 2023-10-10 13:58 | disposition home or self-care (01) ==
LOC: SDC-PAIN 11:06
PROVIDERS: ATTEND Psychiatry & Neurology Pain Medicine
DX: M54.16 Radiculopathy, lumbar region (principal); M79.18 Myalgia, other site; E11.9 Type 2 diabetes mellitus without complications
CPT/HCPCS: 64483; 64484; 72100; 72170; 77002; 77003; 82947; J1100; J1170; J2704; Q9966

== ENCOUNTER 2024-03-12 08:43 | Day surgery (SDC) | payer MEDICARE, OTHER ==
[2024-03-12] MEDS ORDERED: BUPIVACAINE 0.5% VIAL IJ ONE (08:44)
[2024-03-12] MEDS ORDERED: LIDOCAINE HCL 1% 50 MG/5 ML VL PF IJ ONE (08:44)
[2024-03-12] MEDS ORDERED: Depo-Medrol 40 MG/ML IM ONE (08:44)
[2024-03-12] MEDS ORDERED: DIPRIVAN 200 MG/20 ML IV ONE (10:33)
[2024-03-12] MEDS ORDERED: MORPHINE SULFATE 2 MG INJ ONE (10:53)
--- NOTE | 2024-03-12 11:38 | XRAY ---
Indication: Left L4-S1 RFA. Intraoperative fluoroscopy provided for 24 seconds. 4 digital spot image submitted for interpretation demonstrates posterior needle tips projecting over the expected left L4-S1 nerve roots. Correlate with intraoperative findings/report.
--- NOTE | 2024-03-12 13:39 | XRAY ---
24 seconds of fluoroscopy was used in surgery for a left L4-S1 RFA.
[2024-03-12] MEDS ORDERED: Lactated Ringers 1,000 ML IV ONE (14:59)
== END 2024-03-12 11:25 ==
LOC: SDC-PAIN 08:43
PROVIDERS: ATTEND Psychiatry & Neurology Pain Medicine
DX: M47.816 Spondylosis without myelopathy or radiculopathy, lumbar region (principal); E11.9 Type 2 diabetes mellitus without complications
CPT/HCPCS: 64635; 64636; 72100; 77002; 82947; J2001; J2270; J2704

== ENCOUNTER 2024-03-19 09:12 | Day surgery (SDC) | payer MEDICARE, OTHER ==
[2024-03-19] MEDS ORDERED: BUPIVACAINE 0.5% VIAL IJ ONE (09:13)
[2024-03-19] MEDS ORDERED: Depo-Medrol 40 MG/ML IM ONE (09:13)
[2024-03-19] MEDS ORDERED: LIDOCAINE HCL 1% 50 MG/5 ML VL PF IJ ONE (09:13)
[2024-03-19] MEDS ORDERED: DIPRIVAN 200 MG/20 ML IV ONE (10:52)
[2024-03-19] MEDS ORDERED: Hydromorphone 1 mg/ml Injection ONE (11:16)
--- NOTE | 2024-03-19 11:49 | XRAY ---
18 seconds of fluoroscopy was used in surgery for a right L4-S1 RFA.
--- NOTE | 2024-03-19 11:52 | XRAY ---
Indication: Right L4-S1 RFA. Intraoperative fluoroscopy provided for 18 seconds. 3 digital spot image submitted for interpretation demonstrates posterior needle tips projecting over expected right L4-S1 nerve roots. Correlate with intraoperative findings/report.
[2024-03-19] MEDS ORDERED: Lactated Ringers 1,000 ML IV ONE (14:32)
== END 2024-03-19 11:55 ==
LOC: SDC-PAIN 09:12
PROVIDERS: ATTEND Psychiatry & Neurology Pain Medicine
DX: M47.816 Spondylosis without myelopathy or radiculopathy, lumbar region (principal)
CPT/HCPCS: 64635; 64636; 72100; 77002; 82947; J1170; J2001; J2704

== ENCOUNTER 2024-09-03 08:47 | Day surgery (SDC) | payer MEDICARE, OTHER ==
[2024-09-03] MEDS ORDERED: BUPIVACAINE 0.5% VIAL IJ ONE (08:48)
[2024-09-03] MEDS ORDERED: Depo-Medrol 40 MG/ML IM ONE (08:48)
[2024-09-03] MEDS ORDERED: propofoL IV ONE (10:15)
[2024-09-03] MEDS ORDERED: MORPHINE SULFATE 2 MG INJ ONE (10:36)
--- NOTE | 2024-09-03 12:00 | XRAY ---
Indication: Bilateral SI joint injection. Intraoperative fluoroscopy provided for 26 seconds. 2 digital spot image submitted for interpretation demonstrates posterior needle tips projecting over left and right SI joints. Small amount of contrast injected for needle tip placement. Correlate with intraoperative findings/report.
--- NOTE | 2024-09-03 12:32 | XRAY ---
26 seconds of fluoroscopy was used in surgery for a bilateral sacroiliac joint injection.
== END 2024-09-03 11:00 | disposition home or self-care (01) ==
LOC: SDC-PAIN 08:47
PROVIDERS: ATTEND Psychiatry & Neurology Pain Medicine
DX: M46.1 Sacroiliitis, not elsewhere classified (principal); E11.9 Type 2 diabetes mellitus without complications
CPT/HCPCS: 27096; 72202; 77002; 82947; J2270; J2704; Q9966

== ENCOUNTER 2025-06-10 07:56 | Day surgery (SDC) | payer MEDICARE, OTHER ==
[2025-06-10] MEDS ORDERED: LIDOCAINE HCL 1% 50 MG/5 ML VL IJ ONE (07:57)
[2025-06-10] MEDS ORDERED: Sodium Chloride 0.9(Preservative Free) 10 ML IJ ONE (07:57)
[2025-06-10] MEDS ORDERED: methylPREDNISolone acetate IM ONE (07:57)
[2025-06-10] MEDS ORDERED: propofoL IV ONE (09:36)
[2025-06-10] MEDS ORDERED: MORPHINE SULFATE 4 MG INJ ONE (09:56)
[2025-06-10] MEDS ORDERED: Lactated Ringers 1,000 ML IV ONE (11:00)
--- NOTE | 2025-06-10 12:34 | XRAY ---
Indication: Caudal EMI. Intraoperative fluoroscopy provided for 14 seconds. 3 digital spot image submitted for interpretation demonstrates caudal needle tip projecting mid sacrum. Small amount of contrast injected for needle tip placement. Correlate with intraoperative findings/report.
--- NOTE | 2025-06-10 12:34 | XRAY ---
Indication: Left piriformis injection. Intraoperative fluoroscopy provided for 8 seconds. Single digital spot image submitted for interpretation demonstrates posterior needle tip projecting over left piriformis. Small amount of contrast injected for needle tip placement. Correlate with intraoperative findings/report.
--- NOTE | 2025-06-10 12:52 | XRAY ---
14 seconds of fluoroscopy was used in surgery for a caudal EMI.
--- NOTE | 2025-06-10 12:53 | XRAY ---
8 seconds of fluoroscopy was used in surgery for a left piriformis injection.
== END 2025-06-10 10:28 | disposition home or self-care (01) ==
LOC: SDC-PAIN 07:56
PROVIDERS: ATTEND Psychiatry & Neurology Pain Medicine
DX: M54.16 Radiculopathy, lumbar region (principal); E11.9 Type 2 diabetes mellitus without complications; M79.18 Myalgia, other site